=== PATIENT | female | born 1985 | race Caucasian/White ===

== ENCOUNTER 2023-09-20 03:46 | Day surgery (SDC) | payer OTHER ==
[2023-09-16 16:25] VITALS: BMI 17.5
[2023-09-20 10:04] VITALS: RESP 18
[2023-09-20] MEDS ORDERED: MIDAZOLAM HCL 2 MG/2 ML SINGLE DOSE VIAL ONE (12:28)
[2023-09-20] MEDS ORDERED: ELECTROLYTE-148 SOLN 1,000 ML IV SCH (12:30)
[2023-09-20] MEDS: ceFAZolin SODIUM 1 GM VIAL IVPB ONE (12:34)
[2023-09-20 13:06] VITALS: BP 110/66; PULSE 71; TEMP 98.4
== END 2023-09-20 13:43 | disposition home or self-care (01) ==
LOC: JASU-SURG 03:46
PROVIDERS: ATTEND Urology
PROC: 0TF4XZZ Fragmentation in Left Kidney Pelvis, External Approach (ICD-10-PCS; principal; 2023-09-20 11:45)
DX: N20.0 Calculus of kidney (principal)
CPT/HCPCS: 81025